=== PATIENT | female | born 1960 | race Caucasian/White ===

== ENCOUNTER 2017-06-07 19:34 | Emergency (ER) ==
[2017-06-07 19:45] VITALS: TEMP 97.4; BMI 22.4
[2017-06-07] MEDS ORDERED: TORADOL IM STA (20:08)
--- NOTE | 2017-06-07 20:29 | ED.PDOC ---
General ED Provider: Dr. FE BARNES Chief Complaint: Back Pain Stated Complaint: Patient is new to the area, she ran out of her medications, Time Seen by Physician: 20:28 Mode of Arrival: Ambulance Information Source: Patient, EMT Nursing and Triage Documentation Reviewed and Agree: Yes Reviewed sepsis parameters & appropriate labs ordered?: No System Inflammatory Response Syndrome: Not Applicable Sepsis Protocol: For patient's 13 years and over: Temp is 96.8 and below OR 101 and greater Pulse >90 BPM Resp >20/minute Acutely Altered Mental Status Are patient's symptoms suggestive of a new infection, such as: -Pneumonia -Skin, Soft Tissue -Endocarditis -UTI -Bone, Joint Infection -Implantable Device -Acute Abdominal Infection -Wound Infection -Meningitis -Blood Stream Catheter Infection -Unknown Musculoskeletal Complaint Exam - Back Pain Complaint/Exam Mechanism of Injury: Reports: No known trauma Symptoms Are: Still present Timing: Constant Episodes Lasting: Days Initial Severity: Moderate Current Severity: Moderate Location: Reports: Discrete Character: Reports: Aching, Throbbing Aggravating: Reports: Movements Alleviating: Reports: None Associated Signs and Symptoms: Denies: Swelling, Redness, Bruising, Fever, Weakness, Numbness, Tingling, Abdominal pain, Flank pain, Bladder incontinence, Bowel incontinence, Weight loss, Pain with weight bearing Related History: Reports: Similar episode TAD Risk Factors: Reports: None AAA Risk Factors: Reports: None Cauda Equina Risk Factors: Reports: None Epidural Abcess Risk Factors: Reports: None Related Surgical History: Reports: None Focal Tenderness: Yes Paraspinal Muscle Tenderness: Yes Paraspinal Muscle Spasm: Yes Scoliosis: No Lordosis: No Kyphosis: No SLR Test: Right Positive Hip Motion Testing Pain: Left Negative Focal Weakness: Present: None Focal Sensory Loss: Present: None Gait: Present: Normal Differential Diagnoses: Fracture, Strain Review of Systems - Review Of Systems Constitutional: Reports: Weakness Eyes: Reports: No symptoms Ears, Nose, Mouth, Throat: Reports: No symptoms Respiratory: Reports: No symptoms Cardiac: Reports: No symptoms GI: Reports: No symptoms : Reports: No symptoms Musculoskeletal: Reports: Back pain, Joint pain Skin: Reports: No symptoms Neurological: Reports: No symptoms Endocrine: Reports: No symptoms Hematologic/Lymphatic: Reports: No symptoms All Other Systems: Reviewed and Negative Past Medical History - Past Medical History Previously Healthy: Yes Endocrine: Reports: None Cardiovascular: Reports: Hypertension Respiratory: Reports: None Hematological: Reports: None Gastrointestinal: Reports: None Genitourinary: Reports: None Neuro/Psych: Reports: None Musculoskeletal: Reports: None Cancer: Reports: None Last Menstrual Period: YEARS - Surgical History General Surgical History: Reports: None - Family History Family History: Reports: None - Social History Smoking Status: Current every day smoker, Heavy tobacco smoker Smoking Cessation Counseling Time: > 3 min - 10 min Hx Substance Use: Yes (METH) Alcohol Screening: Occasionally - Immunizations Tetanus Shot up to Date: No Physical Exam - Physical Exam Appearance: Well-appearing Eyes: LUCINA, EOMI, Conjunctiva clear ENT: Ears normal, Nose normal, Oropharynx normal Respiratory: Airway patent, Breath sounds clear, Breath sounds equal, Respirations nonlabored Cardiovascular: RRR, Pulses normal, No rub, No murmur GI/: Soft, Nontender, No masses, Bowel sounds normal, No Organomegaly Musculoskeletal: No edema, No calf tenderness, Limited ROM, Limited strength Skin: Warm, Dry, Normal color Neurological: Sensation intact, Motor intact, Reflexes intact, Cranial nerves intact, Alert, Oriented Psychiatric: Affect appropriate, Mood appropriate Interpretation - Radiology Interpretation Radiology Interpretation By: Radiologist Radiology Results: Negative Exam Interpreted: CT Scan Critical Care Note - Critical Care Note Total Time (mins): 15 Course - Course Hematology/Chemistry: 06/07/17 19:49 06/07/17 19:49 Orders, Labs, Meds: Lab Review 06/07/17 06/07/17 06/07/17 19:48 19:48 19:49 WBC 8.73 RBC 5.55 H Hgb 16.2 H Hct 48.7 H MCV 87.7 MCH 29.2 MCHC 33.3 RDW Coeff of Wili 14.0 Plt Count 292 Immature Gran % (Auto) 0.2 Neut % (Auto) 74.1 Lymph % (Auto) 18.6 [place] % (Auto) 5.3 Eos % (Auto) 1.3 Baso % (Auto) 0.5 Immature Gran # (Auto) 0.0 Neut # 6.5 Lymph # 1.6 [place] # 0.5 Eos # 0.1 Baso # 0.0 Sodium Potassium Chloride Carbon Dioxide Anion Gap BUN Creatinine Estimated GFR (MDRD) BUN/Creatinine Ratio Glucose Calcium Total Bilirubin AST ALT Alkaline Phosphatase Total Creatine Kinase Troponin I Total Protein Albumin Globulin Albumin/Globulin Ratio Urine Color Yellow Urine Clarity Clear Urine pH 6.5 Ur Specific [place] 1.025 Urine Protein Negative Urine Glucose (UA) Negative Urine Ketones Negative Urine Blood Negative Urine Nitrite Negative Urine Bilirubin Negative Urine Urobilinogen 0.2 Ur Leukocyte Esterase 1+ Urine Microscopic WBC 2-5 Ur Squamous Epith Cells 50-100 Urine Bacteria 1+ Urine Opiates Screen Negative Ur Oxycodone Screen Negative Urine Methadone Screen Negative Ur Propoxyphene Screen Negative Ur Barbiturates Screen Negative U Tricyclic Antidepress Negative Ur Phencyclidine Scrn Negative Ur Amphetamine Screen Negative U Methamphetamines Scrn Negative U Benzodiazepines Scrn Negative Urine Cocaine Screen Negative U Cannabinoids Screen Positive 06/07/17 19:49 WBC RBC Hgb Hct MCV MCH MCHC RDW Coeff of [place] Plt Count Immature Gran % (Auto) Neut % (Auto) Lymph % (Auto) [place] % (Auto) Eos % (Auto) Baso % (Auto) Immature Gran # (Auto) Neut # Lymph # [place] # Eos # Baso # Sodium 142 Potassium 4.2 Chloride 104 Carbon Dioxide 28 Anion Gap 14.2 BUN 12 Creatinine 0.95 Estimated GFR (MDRD) 61.00 BUN/Creatinine Ratio 12.63 Glucose 94 Calcium 10.1 Total Bilirubin 0.9 AST 16 ALT 11 L Alkaline Phosphatase 76 Total Creatine Kinase 88 Troponin I 0.0140 Total Protein 8.0 Albumin 4.2 Globulin 3.8 Albumin/Globulin Ratio 1.11 Urine Color Urine Clarity Urine pH Ur Specific [place] Urine Protein Urine Glucose (UA) Urine Ketones Urine Blood Urine Nitrite Urine Bilirubin Urine Urobilinogen Ur Leukocyte Esterase Urine Microscopic WBC Ur Squamous Epith Cells Urine Bacteria Urine Opiates Screen Ur Oxycodone Screen Urine Methadone Screen Ur Propoxyphene Screen Ur Barbiturates Screen U Tricyclic Antidepress Ur Phencyclidine Scrn Ur Amphetamine Screen U Methamphetamines Scrn U Benzodiazepines Scrn Urine Cocaine Screen U Cannabinoids Screen Orders Category Date Time Status EKG-(ED ONLY) Stat CARDIO 06/07/17 19:37 Completed CBC W/ AUTO DIFF Stat LAB 06/07/17 19:49 Completed COMPREHENSIVE METABOLIC PANEL Stat LAB 06/07/17 19:49 Completed CREATINE KINASE Stat LAB 06/07/17 19:49 Completed TROPONIN I Stat LAB 06/07/17 19:49 Completed URINALYSIS C & S IF INDICATED Stat LAB 06/07/17 19:48 Completed URINE DRUG SCREEN (RAPID FOR ED) [DRUG SCREEN, URINE, LAB 06/07/17 19:48 Completed RAPID] Stat Clonidine HCl [Catapres] MEDS 06/07/17 20:27 Discontinued 0.1 mg PO ONCE STA Ketorolac Tromethamine [Toradol] MEDS 06/07/17 20:08 Discontinued 30 mg IM ONCE STA CT LUMBAR SPINE W/O CONTRAST Stat RADS 06/07/17 20:08 Completed Medications Discontinued Medications Generic Name Dose Route Start Last Admin Trade Name Toni PRN Reason Stop Dose Admin Clonidine 0.1 mg 06/07/17 20:27 06/07/17 20:50 Catapres PO 06/07/17 20:28 0.1 mg ONCE STA Administration Ketorolac Tromethamine 30 mg 06/07/17 20:08 06/07/17 20:21 Toradol IM 06/07/17 20:09 30 mg ONCE STA Administration Vital Signs: Temp Pulse Resp BP Pulse Ox 06/07/17 19:35 97.4 F L 62 18 177/70 H 97 Departure - Departure Time of Disposition: 21:58 Disposition: HOME SELF-CARE Discharge Problem: Back pain Qualifiers: Back pain location: low back pain Chronicity: chronic Back pain laterality: bilateral Sciatica presence: without sciatica Qualified Code(s): M54.5 - Low back pain; G89.29 - Other chronic pain; G89.29 - Other chronic pain Instructions: Lower Back Exercises (ED), Chronic Back Pain (ED) Condition: Stable Pt referred to PMD for follow-up: Yes IPMP verified?: No Additional Instructions: rest hot pack f/u [facility] in 1 weeks Prescriptions: Hydrocodone/Acetaminophen [[place] 5-325 Tablet] 1 tab PO TID PRN #10 tablet PRN Reason: PAIN Nitrofurantoin Macrocrystal [Macrodantin] 100 mg PO BID #14 capsule Allergies/Adverse Reactions: Allergies Penicillins Adverse Reaction (Verified 06/07/17 19:39) Home Medications: Ambulatory Orders Hydrocodone/Acetaminophen [[place] 5-325 Tablet] 1 tab PO TID PRN #10 tablet 06/07 Nitrofurantoin Macrocrystal [Macrodantin] 100 mg PO BID #14 capsule 06/07/17 Disposition Discussed With: Patient, Family
[2017-06-07] MEDS: CATAPRES PO STA ×2 (20:50→22:03)
--- NOTE | 2017-06-07 21:51 | CT ---
EXAM: CT lumbar spine without contrast. HISTORY: Low back pain COMPARISON: NONE TECHNIQUE: Serial axial images of the spine were obtained from the lower thoracic spine through the pelvis without contrast. These were viewed in multiple planes. Axial scans acquired at 3 mm slice th [facility]. MPR coronal and sagittal sequence completed FINDINGS: Sagittal sequence shows normal alignment of facet joints vertebral bodies. There is moderate disc sp elvia narrowing L5 S1 level. Vertebral body heights normal. Coronal sequence shows no paravertebral hematoma or swelling. Nonobstructing right nephrolithiasis. L1-L2: No disc protrusion or foraminal stenosis L2-L3: No disc protrusion or foraminal stenosis L3-L4: No disc protrusion or foraminal stenosis L4-L5: Some bulging of the disc is seen with indentation of dura, mild. No foraminal stenosis L5-S1: There are degenerate changes of the disc Minimal bulging of the disc. No foraminal stenosis Small benign appearing calcifications are seen spinal canal posterior to the upper sacrum. Impression 1. Alignment normal. No spondylolysis or spondylolisthesis. 2. Degenerate disc disease with disc space narrowing L5-S1 level. There is some bulging of the disc at L5-S1 without foraminal stenosis. 3. Nonobstructing right nephrolithiasis. Clinical follow-up suggested. If there is progressing pain, a MRI scan may be helpful to further ass ess neural structures.
[2017-06-07] MEDS ORDERED: NORCO 5-325 PO STA (21:58)
[2017-06-07 22:01] VITALS: BP 142/82
== END 2017-06-07 22:24 | disposition home or self-care (01) ==
LOC: ED 19:34
DX: M54.5 Low back pain (principal); G89.29 Other chronic pain; R53.1 Weakness; I10 Essential (primary) hypertension; F17.210 Nicotine dependence, cigarettes, uncomplicated
CPT/HCPCS: 36415; 80053; 80306; 81001; 82550; 84484; 85025; 93005; 93010; 96372; 99283

== ENCOUNTER 2017-09-02 11:45 | Emergency (ER) ==
[2017-09-02 11:49] VITALS: BP 166/91; TEMP 97.5; BMI 27.1
--- NOTE | 2017-09-02 12:44 | ED.PDOC ---
General ED Provider: Dr. RAND ALEX Chief Complaint: Finger Pain/Injury Stated Complaint: left thumb pain Time Seen by Physician: 11:50 Mode of Arrival: Walk-In Information Source: Patient Exam Limitations: No limitations Nursing and Triage Documentation Reviewed and Agree: Yes Reviewed sepsis parameters & appropriate labs ordered?: Yes System Inflammatory Response Syndrome: Not Applicable Sepsis Protocol: For patient's 13 years and over: Temp is 96.8 and below OR 101 and greater Pulse >90 BPM Resp >20/minute Acutely Altered Mental Status Are patient's symptoms suggestive of a new infection, such as: -Pneumonia -Skin, Soft Tissue -Endocarditis -UTI -Bone, Joint Infection -Implantable Device -Acute Abdominal Infection -Wound Infection -Meningitis -Blood Stream Catheter Infection -Unknown System Inflammatory Response Syndrome: Not Applicable Musculoskeletal Complaint Exam - Hand/Wrist Complaint/Exam Location of Pain: Reports: Left, Digit #1 Mechanism of Injury: Reports: Trauma, Other (fall) Onset/Duration: 1 day Symptoms Are: Still present Onset of Pain: Reports: Hours Initial Severity: Mild Current Severity: Mild Location: Reports: Discrete Character: Reports: Aching Alleviating: Reports: Rest Aggravating: Reports: Movement Associated Signs and Symptoms: Denies: Swelling, Redness, Bruising, Fever, Weakness, Numbness, Tingling Dominant Hand: Right Related Surgical History: Reports: None Hand/Wrist Findings: Absent: Swelling, Ecchymosis, Abnormal contour, Rotation, Ligamentous instability, Tinel's Sign, Phalen's Sign, Laceration, Nail avulsion , Subungal hematoma, Erythema, Warmth, Blisters Differential Diagnoses: Closed Fracture Review of Systems - Review Of Systems Constitutional: Reports: No symptoms Eyes: Reports: No symptoms Ears, Nose, Mouth, Throat: Reports: No symptoms Respiratory: Reports: No symptoms Cardiac: Reports: No symptoms GI: Reports: No symptoms : Reports: No symptoms Musculoskeletal: Reports: Joint pain (left thump PIP) Skin: Reports: No symptoms Neurological: Reports: No symptoms Endocrine: Reports: No symptoms Hematologic/Lymphatic: Reports: No symptoms All Other Systems: Reviewed and Negative Past Medical History - Past Medical History Previously Healthy: Yes Endocrine: Reports: None Cardiovascular: Reports: Hypertension Respiratory: Reports: None Hematological: Reports: None Gastrointestinal: Reports: None Genitourinary: Reports: None Neuro/Psych: Reports: None Musculoskeletal: Reports: None Cancer: Reports: None Last Menstrual Period: n/a - Surgical History General Surgical History: Reports: None - Family History Family History: Reports: None - Social History Smoking Status: Current every day smoker, Heavy tobacco smoker Hx Substance Use: Yes (METH) Alcohol Screening: Occasionally Physical Exam - Physical Exam Appearance: Well-appearing, No pain distress, Well-nourished Eyes: LUCINA, EOMI, Conjunctiva clear ENT: Ears normal, Nose normal, Oropharynx normal Respiratory: Airway patent, Breath sounds clear, Breath sounds equal, Respirations nonlabored Cardiovascular: RRR, Pulses normal, No rub, No murmur GI/: Soft, Nontender, No masses, Bowel sounds normal, No Organomegaly Musculoskeletal: Normal strength, ROM intact, No edema, No calf tenderness Skin: Warm, Dry, Normal color Neurological: Sensation intact, Motor intact, Reflexes intact, Cranial nerves intact, Alert, Oriented Psychiatric: Affect appropriate, Mood appropriate Critical Care Note - Critical Care Note Total Time (mins): 0 Course - Course Orders, Labs, Meds: Orders Category Date Time Status HAND, LEFT 3 VIEWS Stat RADS 09/02/17 11:51 Taken WRIST, LEFT 3 VIEWS Stat RADS 09/02/17 11:51 Taken Vital Signs: Temp Pulse Resp BP Pulse Ox 09/02/17 11:46 97.5 F L 64 16 166/91 H 98 Departure - Departure Time of Disposition: 13:00 Disposition: HOME SELF-CARE Discharge Problem: Injury of finger Instructions: Finger Sprain (ED), Jammed Finger (ED) Condition: Good Pt referred to PMD for follow-up: Yes IPMP verified?: No Additional Instructions: Please call your Family Physician as soon as possible to schedule a follow-up appointment. Allergies/Adverse Reactions: Allergies Penicillins Adverse Reaction (Verified 09/02/17 11:49) Home Medications: Ambulatory Orders 1 [No Reported Medications] 09/02/17
--- NOTE | 2017-09-02 12:54 | DI ---
EXAM: Radiographs, left hand HISTORY: Initial presentation for left hand trauma, mostly pain in the left thumb. COMPARISON: None available. TECHNIQUE: Three views. FINDINGS: No fracture or dislocation identified. Severe joint space narrowing and marginal osteophy te formation noted at the first carpal metacarpal joint. Joint spaces are otherwise maintained. No localized soft tissue abnormality detected. IMPRESSION: 1. No fracture or dislocation. 2. Severe first CMC osteoarthritis.
--- NOTE | 2017-09-02 12:55 | DI ---
EXAM: Radiographs, left wrist HISTORY: Initial presentation for left wrist injury. COMPARISON: None available. TECHNIQUE: Three views. FINDINGS: No fracture or dislocation identified. Severe joint space narrowing and marginal osteophy te formation noted at the first carpal metacarpal joint. Joint spaces are otherwise maintained. No localized soft tissue abnormality detected. IMPRESSION: 1. No fracture or dislocation. 2. Severe first CMC osteoarthritis.
== END 2017-09-02 13:09 | disposition home or self-care (01) ==
LOC: ED 11:45
DX: M79.645 Pain in left finger(s) (principal); S69.92XA Unspecified injury of left wrist, hand and finger(s), initial encounter; W19.XXXA Unspecified fall, initial encounter; F17.210 Nicotine dependence, cigarettes, uncomplicated
CPT/HCPCS: 99283

== ENCOUNTER 2017-11-16 15:58 | Emergency (ER) | payer OTHER ==
[2017-11-16 16:06] VITALS: BP 157/96; TEMP 96.7; BMI 25.4
--- NOTE | 2017-11-16 16:59 | ED.PDOC ---
General ED Provider: Dr. USAMA GONSALVES Chief Complaint: Extremity Pain/Injury Stated Complaint: Rt Shoulder Pain. States fell against a cabinet in her bathroom at approximately 2 :30 AM today which caused considerable pain. Persisted today and came in for evaluation due to severe pain. Can move arm but guards due to pain Time Seen by Physician: 16:45 Mode of Arrival: Walk-In Information Source: Patient Exam Limitations: No limitations Primary Care Provider: MELLISA GUAMAN Referred to ED by: PCP Nursing and Triage Documentation Reviewed and Agree: Yes Does patient meet sepsis criteria?: No If yes, has appropriate treatment been initiated?: No System Inflammatory Response Syndrome: Not Applicable Sepsis Protocol: For patient's 13 years and over: Temp is 96.8 and below OR 101 and greater Pulse >90 BPM Resp >20/minute Acutely Altered Mental Status Are patient's symptoms suggestive of a new infection, such as: -Pneumonia -Skin, Soft Tissue -Endocarditis -UTI -Bone, Joint Infection -Implantable Device -Acute Abdominal Infection -Wound Infection -Meningitis -Blood Stream Catheter Infection -Unknown Musculoskeletal Complaint Exam - Shoulder Pain Complaint/Exam Mechanism of Injury: Reports: Trauma Onset/Duration: Today Symptoms Are: Still present Timing: Constant Initial Severity: Moderate Current Severity: Moderate Location: Reports: Diffuse Character: Reports: Sharp, Dull, Aching Alleviating: Reports: Rest Aggravating: Reports: Movement, Lifting, Extension Associated Signs and Symptoms: Reports: Swelling, Bruising (posterior rt scapular region ) Review of Systems - Review Of Systems Constitutional: Reports: Chills Eyes: Reports: No symptoms Ears, Nose, Mouth, Throat: Reports: No symptoms Respiratory: Reports: No symptoms Cardiac: Reports: No symptoms GI: Reports: No symptoms : Reports: No symptoms Musculoskeletal: Reports: No symptoms, Other (shoulder pain ) Skin: Reports: No symptoms Neurological: Reports: No symptoms Endocrine: Reports: No symptoms Hematologic/Lymphatic: Reports: No symptoms All Other Systems: Reviewed and Negative Past Medical History - Past Medical History Previously Healthy: Yes Endocrine: Reports: None Cardiovascular: Reports: Hypertension Respiratory: Reports: None Hematological: Reports: None Gastrointestinal: Reports: None Genitourinary: Reports: None Neuro/Psych: Reports: None Musculoskeletal: Reports: None Cancer: Reports: None Last Menstrual Period: na - Surgical History General Surgical History: Reports: None - Family History Family History: Reports: None - Social History Smoking Status: Current some day smoker Hx Substance Use: No Alcohol Screening: None - Immunizations Tetanus Shot up to Date: No Physical Exam - Physical Exam Appearance: Well-appearing Ill-appearing: None Pain Distress: None Eyes: LUCINA, EOMI, Conjunctiva clear ENT: Ears normal, Nose normal, Oropharynx normal Neck: Supple Respiratory: Airway patent Cardiovascular: RRR, Pulses normal, No rub, No murmur GI/: Soft, Nontender, No masses, Bowel sounds normal, No Organomegaly Musculoskeletal: ROM intact (Restricted Rt Shoulder Rotation and abduction ) Critical Care Note - Critical Care Note Total Time (mins): 0 Course - Course Orders, Labs, Meds: Orders Category Date Time Status Hydrocodone Bit/Acetaminophen [[place] 7.5-325] MEDS 11/16/17 19:34 Stat 1 tab PO ONCE STA SCAPULA, RIGHT Stat RADS 11/16/17 17:14 Completed SHOULDER, RIGHT MIN 2V Stat RADS 11/16/17 17:14 Completed Medications Discontinued Medications Generic Name Dose Route Start Last Admin Trade Name Freq PRN Reason Stop Dose Admin Hydrocodone Bitart/Acetaminophen 1 tab 11/16/17 19:34 [place] 7.5-325 PO 11/16/17 19:35 ONCE STA Vital Signs: Temp Pulse Resp BP Pulse Ox 11/16/17 15:59 96.7 F L 83 16 157/96 H 96 Departure - Departure Time of Disposition: 18:50 Disposition: HOME SELF-CARE Discharge Problem: Right shoulder strain, Contusion of right scapular region Instructions: Rotator Cuff Injury (ED), Contusion in Adults (ED) Condition: Good Pt referred to PMD for follow-up: Yes (PCP next week) IPMP verified?: No Additional Instructions: Shoulder sling as directed Maynard 7.5 1 here plus Rx Maynard for home for acute pain control. Tramadol and Tylenol as needed for mild or mod pain one finished with [place]nard Ice to the area of discomfort Follow up PCP 1 week Prescriptions: Hydrocodone Bit/Acetaminophen [[place] 5-325] 1 each PO Q6HR PRN #10 tablet PRN Reason: shoulder pain Allergies/Adverse Reactions: Allergies Penicillins Adverse Reaction (Verified 11/16/17 16:08) Home Medications: Ambulatory Orders Hydrocodone Bit/Acetaminophen [[place] 5-325] 1 each PO Q6HR PRN #10 tablet Disposition Discussed With: Patient
--- NOTE | 2017-11-16 18:56 | DI ---
Exam: Three views right shoulder. Comparison: None available. Reason for exam: Shoulder injury. FINDINGS: No acute fracture or dislocation. The clavicle is intact. The humeral head articulates w ith bony glenoid. Impression: No acute fracture or dislocation in the right shoulder
--- NOTE | 2017-11-16 18:57 | DI ---
EXAM: Two views of the right scapula HISTORY: Trauma and pain. COMPARISON: Right shoulder x-rays same day FINDINGS: There is no fracture of the scapula. There is no lytic or blastic lesion. Soft tissues are unremarkable. IMPRESSION: No acute scapular injury or fracture
[2017-11-16] MEDS ORDERED: NORCO 7.5-325 PO STA (19:34)
== END 2017-11-16 19:46 | disposition home or self-care (01) ==
LOC: ED 15:58
DX: S46.911A Strain of unspecified muscle, fascia and tendon at shoulder and upper arm level, right arm, initial encounter (principal); S40.011A Contusion of right shoulder, initial encounter; W19.XXXA Unspecified fall, initial encounter; F17.210 Nicotine dependence, cigarettes, uncomplicated
CPT/HCPCS: 99283